=== PATIENT | female | born 1990 | race Caucasian/White ===

== ENCOUNTER 2016-12-08 21:13 | Emergency (ER) | payer OTHER ==
[~2016-12-08] VITALS: Ht 152.4 cm; Wt 70.4 kg
[~2016-12-08 21:13] MED LIST: IBUP800T28 PO; PNV91TAB3 PO
[2016-12-08 21:23] VITALS: BP 115/81; PULSE 88; RESP 16; O2SAT 99
--- NOTE | 2016-12-08 21:28 | ED.REPORT ---
HPI-Dental/Mouth Prob Date of Service Dec 08, 2016 ED Provider: MD Rosalio Patient is a 26 year old female with a dental abscess diagnosed today at urgent care who presents to the ED because urgent care did not sent her prescription for abx to her pharmacy. When her pharmacy tried to call urgent care, they were closed. Associated symptoms include L facial swelling and dental pain onset 4 days ago. She denies fever, vomiting, or any other symptoms. She saw a dentist yesterday who said she did not need abx unless her swelling increased. Nursing Notes Stated Complaint: ABSCESS Chief Complaint: Dental Nursing Notes Reviewed: Yes Allergies: Coded Allergies: No Known Allergies (Unverified , 12/08/16) Scheduled PRN Ibuprofen (Ibuprofen) 800 Mg Tablet 800 MG PO Q6H PRN PRN For Pain Miscellaneous Medications Pnv95/Ferrous Fumarate/FA ( Caplet) 28 Mg Iron-800 Mcg Tablet 1 EACH PO General Time Seen by MD: 21:27 Chief Complaint Other (Dental abcess ) Hx Obtained From: Patient Arrived By: Walk-in Onset Occurred: 4 days ago Symptom Duration: Since onset Recent Healthcare: Recent doctor visit Past Medical History Past Medical History Denies Past Surgical History None reported Smoking History Never Smoker Ambulatory Status Independent Review of Systems Review of Systems Note: +facial swelling Constitutional: Denies: Fever Ears / Nose / Throat: Reports: Toothache GI: Denies: Vomiting Complete sys rev & neg: except as marked. Physical Exam Initial Vital Signs Vital Signs (First) Date Time Temp Pulse Resp B/P Pulse Ox O2 Delivery O2 Flow Rate FiO2 12/08/16 21:23 36.4 88 16 115/81 99 Room Air Initial VS: Reviewed, Vital signs normal General/Constitutional: Well-developed, Well-nourished Head / Eyes: Atraumatic, Normocephalic Respiratory: No respiratory distress Skin: Warm, Dry Neurologic: Alert, Oriented, Nonfocal Psychiatric: Mood/affect normal, Behavior normal, Normal thought content ENT: Airway patent Fullness of lingual surface behind #24 and 25. mild submandibular adenopathy L minor fullness over L side jaw Neck: Supple, Full range of motion Re-Eval/Medical Decision Re-Evaluation/Progress : Time of Eval: 21:58 Re-Evaluation/Progress Note: Discussed plan for discharge. Patient understands and agrees with plan. All questions addressed at this time. Counseled Regarding: Diagnosis, Need for follow-up, When/why to return to ED Discharge & Departure Primary Impression: Dental abscess Disposition: Home Discharge Condition All VS Reviewed: Yes Condition: Stable I'm sorry the prescription from urgent care didn't actually get to the pharmacy. I've given you a full prescription of amoxicillin, 500mg by mouth 3x/day for 10 days. Use ibuprofen for pain control as needed. I hope you feel better soon! Referrals: [facility] (PCP) Scribe Attestation Portions of this note were transcribed by Jaimie Pino. I, Dr. Santamaria personally performed the history, physical exam and medical decision-making; I reviewed and confirmed the accuracy of the information in the transcribed note. Signed by: Jaimie Pino 12/08/16, 2204 Suzette Santamaria MD Dec 08, 2016 21:27 JAIMIE PINO Dec 08, 2016 22:02
[2016-12-09] MEDS ORDERED: _Amoxicillin 500 mg Capsule PO SCH (08:30)
== END 2016-12-08 22:05 | disposition home or self-care (01) ==
LOC: SED 21:13
DX: K04.7 Periapical abscess without sinus (principal)
CPT/HCPCS: 99283; G0463